=== PATIENT | female | born 1955 | race Caucasian/White ===

== ENCOUNTER 2018-03-26 14:02 | Outpatient (CLI) | payer BC ==
[2018-03-26 14:51] LABS: BASOPHILS % (AUTO) 0.6 % (0-1); EOSINOPHILS # (AUTO) 0.2 X10'3 (0-0.9); HEMATOCRIT 36.3 % (35.0-45.0); HEMOGLOBIN 12.5 g/dl (12.0-16.0); LYMPHOCYTES # (AUTO) 2.9 X10'3 (1.1-4.8); LYMPHOCYTES % (AUTO) 39.9 % (21-51); MEAN CORPUSCULAR HEMOGLOBIN 31.5 PG (27.0-31.0); MEAN CORPUSCULAR HGB CONC 34.4 % (33.0-36.5); MEAN CORPUSCULAR VOLUME 91.6 FL (78-98); MEAN PLATELET VOLUME 8.7 FL (7.4-10.4); MONOCYTES # (AUTO) 0.5 X10'3 (0-0.9); MONOCYTES % (AUTO) 6.4 % (2-12); NEUTROPHILS # (AUTO) 3.6 X10'3 (1.8-7.7); NEUTROPHILS % (AUTO) 50.1 % (42-75); PLATELET COUNT 303 X10'3 (140-440); RED BLOOD COUNT 3.97 X10'6 (4.20-5.60); RED CELL DISTRIBUTION WIDTH 13.2 % (11.5-14.5); WHITE BLOOD COUNT 7.2 X10'3 (4.5-11.0)
[2018-03-26 14:53] LABS: CLARITY,URINE SLIGHTLY CLOUDY (Clear); COLOR,URINE STRAW (Yellow); GLUCOSE, URINE NEGATIVE (Neg); KETONES,URINE NEGATIVE (Neg); LEUKOCYTE ESTERASE ,URINE TRACE (Neg); NITRITES, URINE NEGATIVE (Neg); OCCULT BLOOD,URINE NEGATIVE (Neg); PROTEIN,URINE NEGATIVE (Neg); UROBILINOGEN,URINE 0.2 E.U/dL (0.2-1.0)
[2018-03-26 15:00] LABS: PROTHROMBIN TIME 9.9 SECONDS (9.0-12.0)
[2018-03-26 15:08] LABS: ALANINE AMINOTRANSFERASE 15 U/L (12-78); ALBUMIN 3.3 G/DL (3.4-5.0); ALBUMIN/GLOBULIN RATIO 0.9 (1.1-1.5); ALKALINE PHOSPHATASE 85 IU/L (46-116); ANION GAP 7 (8-16); ASPARTATE AMINO TRANSFERASE 19 U/L (10-37); BILIRUBIN,TOTAL 0.2 MG/DL (0.1-1.0); BLOOD UREA NITROGEN 17 MG/DL (7-18); BUN/CREATININE RATIO 22.1 (6.6-38.0); CALCIUM 8.9 MG/DL (8.5-10.1); CHLORIDE 105 MMOL/L (99-107); CREATININE 0.77 MG/DL (0.40-0.90); GLUCOSE 102 MG/DL (70-104); POTASSIUM 3.2 MMOL/L (3.5-5.1); SODIUM 140 MMOL/L (135-145); TOTAL CARBON DIOXIDE 28.3 MMOL/L (24-32); eGFR 75 ML/MIN
[2018-03-26 15:09] LABS: UA COLLECTION TYPE CLN CATCH MIDSTREAM
[2018-03-26 15:10] LABS: BACTERIA,URINE 2+ /HPF (Neg); RBC,URINE NONE SEEN /HPF (0-2); WBC,URINE 0-4 /HPF (0-4)
[2018-03-26 15:11] LABS: SQUAMOUS EPITHELIAL CELL,UR FEW /LPF (FEW)
[2018-03-28] MEDS ORDERED: PROG200C7 PO (16:19)
[2018-03-28] MEDS ORDERED: ESTR2TAB PO (16:19)
[2018-03-28] MEDS ORDERED: AMLO2.5T2 PO (16:19)
[2018-03-28] MEDS ORDERED: VARE0.5T PO (16:19)
[2018-03-28] MEDS ORDERED: ALPR-624 PO (16:19)
[2018-03-28] MEDS ORDERED: ESCI5TAB PO (16:19)
[2018-03-28] MEDS ORDERED: HYDR-565 PO (16:19)
[2018-03-28] MEDS ORDERED: FAMO20TA8 PO (16:19)
[2018-03-28] MEDS ORDERED: LANS30CA56 PO (16:19)
== END 2018-03-26 23:59 | disposition home or self-care (01) ==
LOC: LAB 14:02
PROVIDERS: ATTEND Specialist
DX: Z01.818 Encounter for other preprocedural examination (principal); Z51.81 Encounter for therapeutic drug level monitoring; N39.0 Urinary tract infection, site not specified; Z87.891 Personal history of nicotine dependence; Z79.899 Other long term (current) drug therapy
CPT/HCPCS: 36415; 80053; 81001; 85025; 85610; 87070

== ENCOUNTER 2018-04-01 05:22 | Inpatient (IN) | payer BC ==
[~2018-04-01] VITALS: Ht 142.2 cm; Wt 47.2 kg
[2018-04-01] VITALS (20 sets, daily range): BP systolic 91–128; BP diastolic 43–79
[~2018-04-01 05:22] MED LIST: ALPR-624 PO; AMLO2.5T2 PO; ESCI5TAB PO; ESTR2TAB PO; FAMO20TA8 PO; HYDR-565 PO; LANS30CA56 PO; PROG200C7 PO; VARE0.5T PO; ringers solution, lacted 1,000 ML IV SCH
[2018-04-01] MEDS ORDERED: acetaminophen 325mg tablet PO ONE (05:30)
[2018-04-01] MEDS ORDERED: famotidine 20mg tablet PO ONE (05:30)
[2018-04-01] MEDS ORDERED: oxyCODONE SR 10mg (sust. release) tab PO ONE (05:30)
[2018-04-01] MEDS ORDERED: celeCOXIB 100mg capsule PO ONE (05:30)
[2018-04-01] MEDS ORDERED: gabapentin 300mg capsule PO ONE (05:30)
[2018-04-01] MEDS ORDERED: Cefazolin 2GM/50ML dext iso,osmotic IVPB IV ONE (05:30)
[2018-04-01] MEDS ORDERED: tranexamic acid inj. 1,000 MG in normal saline 100ml IV soln 90 ML IV ONE (05:30)
[2018-04-01] MEDS ORDERED: LIDOcaine 1% (10mg/ml) 2ml vial ONE (05:54)
[2018-04-01] MEDS ORDERED: MESSAGE TO NURSING PO ONE (06:00)
[2018-04-01] MEDS ORDERED: ROPIVAcaine 0.5% (5mg/ml) 30ml vial ONE ×2 (06:30→07:42)
[2018-04-01] MEDS ORDERED: bacitracin inj 150,000 UNIT in sodium chloride irrig. sol 3,000 ML IR ONE (07:00)
[2018-04-01] MEDS ORDERED: diphenhydrAMINE 50 mg/ml inj ONE (07:00)
[2018-04-01] MEDS ORDERED: cloNIDine hcl/PF 100mcg/ml inj ONE (07:03)
[2018-04-01] MEDS ORDERED: tetracaine 1% (10mg/ml) pres. free inj. ONE (07:03)
[2018-04-01] MEDS ORDERED: morphine /PF 1mg/ml 10ml inj. ONE (07:06)
[2018-04-01] MEDS ORDERED: fentaNYL/PF 50MCG/1 ML 2ML syringe ONE (07:06)
[2018-04-01] MEDS ORDERED: MIDAZolam 5mg/5ml vial ONE (07:07)
[2018-04-01] MEDS ORDERED: propofol inj 20 ML IV ONE (07:34)
[2018-04-01] MEDS ORDERED: LIDOcaine 1%/PF 5ML 10 MG/ML VIAL ONE (07:34)
[2018-04-01] MEDS ORDERED: NALOXONE IV PRN (08:27)
[2018-04-01] MEDS ORDERED: ringers solution, lacted 1,000 ML IV SCH (08:27)
[2018-04-01] MEDS ORDERED: NORMAL SALINE IV PRN (08:27)
[2018-04-01] MEDS ORDERED: proCHLORperazine 10 MG/2 ml inj IV PRN (08:30)
[2018-04-01] MEDS ORDERED: morphine 4 MG/ML inj SYRINge IV PRN ×2 (08:30)
[2018-04-01] MEDS ORDERED: ondansetron/PF 4mg/2ml inj IV PRN ×3 (08:30→09:40)
[2018-04-01] MEDS ORDERED: diphenhydrAMINE 50 mg/ml inj IV PRN (08:30)
[2018-04-01] MEDS ORDERED: meperidine/PF 25mg/ml syringe IV PRN ×3 (08:30)
[2018-04-01] MEDS ORDERED: ceFAZolin 1000mg inj ONE (08:53)
[2018-04-01] MEDS ORDERED: bisacodyl 10mg suppository rectal RC PRN (09:40)
[2018-04-01] MEDS ORDERED: diphenhydrAMINE 25mg capsule PO PRN ×2 (09:40)
[2018-04-01] MEDS ORDERED: acetaminophen 325mg tablet PO PRN (09:40)
[2018-04-01] MEDS ORDERED: oxyCODONE/APAP 10/325mg tablet PO PRN (09:40)
[2018-04-01] MEDS: potassium cl 20mEq in 1/2 NS 1,000 ML IV SCH ×2 (12:27→20:25)
[2018-04-01] MEDS: gabapentin 300mg capsule PO SCH ×2 (12:27→20:26)
[2018-04-01] MEDS: HYDROmorphone 1 mg/ml syringe IV PRN ×2 (16:26→23:47)
[2018-04-01] MEDS: ceFAZolin 1GM/D5W- ADD-VANTAGE 50 ML IV SCH (16:27)
[2018-04-01] MEDS: vancomycin/NS 1 GM ADD-VANTAGE 250 ML IV SCH (20:25)
[2018-04-01] MEDS: varenicline tartrate 0.5mg tablet PO SCH (20:25)
[2018-04-01] MEDS: sennosides 8.6mg tablet PO SCH (20:26)
[2018-04-01] MEDS: ascorbic acid 500mg tablet PO SCH (20:26)
[2018-04-01] MEDS: progesterone, micronized 100mg capsule PO SCH (20:27)
[2018-04-01] MEDS: ALPRAZolam 0.5mg tablet PO PRN (20:39)
[2018-04-01] MEDS: oxyCODONE/APAP 10/325mg tablet PO PRN (20:39)
[2018-04-02] MEDS: ceFAZolin 1GM/D5W- ADD-VANTAGE 50 ML IV SCH (00:34)
[2018-04-02 02:00] VITALS: BP 100/52
[2018-04-02] MEDS: ALPRAZolam 0.5mg tablet PO PRN ×3 (03:47→22:26)
[2018-04-02 05:00] VITALS: BP 114/60
[2018-04-02] MEDS: oxyCODONE/APAP 10/325mg tablet PO PRN ×4 (05:06→20:39)
[2018-04-02 05:18] LABS: BASOPHILS % (AUTO) 0.2 % (0-1); EOSINOPHILS # (AUTO) 0.1 X10'3 (0-0.9); EOSINOPHILS % (AUTO) 1.3 % (0-6); HEMATOCRIT 29.2 % (35.0-45.0); HEMOGLOBIN 9.9 g/dl (12.0-16.0); LYMPHOCYTES # (AUTO) 1.9 X10'3 (1.1-4.8); LYMPHOCYTES % (AUTO) 17.8 % (21-51); MEAN CORPUSCULAR HEMOGLOBIN 31.2 PG (27.0-31.0); MEAN CORPUSCULAR HGB CONC 33.8 % (33.0-36.5); MEAN CORPUSCULAR VOLUME 92.5 FL (78-98); MEAN PLATELET VOLUME 9.1 FL (7.4-10.4); MONOCYTES # (AUTO) 0.9 X10'3 (0-0.9); MONOCYTES % (AUTO) 8.2 % (2-12); NEUTROPHILS % (AUTO) 72.5 % (42-75); PLATELET COUNT 248 X10'3 (140-440); RED BLOOD COUNT 3.16 X10'6 (4.20-5.60); RED CELL DISTRIBUTION WIDTH 13.5 % (11.5-14.5)
[2018-04-02 05:26] LABS: INR 1.7 INR; PROTHROMBIN TIME 16.9 SECONDS (9.0-12.0)
[2018-04-02 05:31] LABS: ANION GAP 6 (8-16); CHLORIDE 109 MMOL/L (99-107); POTASSIUM 3.8 MMOL/L (3.5-5.1); SODIUM 139 MMOL/L (135-145); TOTAL CARBON DIOXIDE 23.9 MMOL/L (24-32)
[2018-04-02] MEDS: varenicline tartrate 0.5mg tablet PO SCH ×2 (07:52→20:37)
[2018-04-02] MEDS: citalopram 20mg tablet PO SCH (07:52)
[2018-04-02] MEDS: estradiol 1mg tablet PO SCH (07:52)
[2018-04-02] MEDS: gabapentin 300mg capsule PO SCH ×3 (07:53→20:37)
[2018-04-02] MEDS: multivitamins, therapeutics tablet PO SCH (07:53)
[2018-04-02] MEDS: vancomycin/NS 1 GM ADD-VANTAGE 250 ML IV SCH (07:53)
[2018-04-02] MEDS: ascorbic acid 500mg tablet PO SCH ×2 (07:53→20:39)
[2018-04-02] MEDS: pantoprazole 40mg Tablet.DR PO SCH (07:53)
[2018-04-02] MEDS: potassium cl 20mEq in 1/2 NS 1,000 ML IV SCH ×3 (07:53→19:02)
[2018-04-02] MEDS: amLODIPine 5mg tablet PO SCH (07:54)
[2018-04-02 10:00] VITALS: BP 120/58
[2018-04-02] MEDS ORDERED: warfarin 3mg tablet PO ONE (10:00)
[2018-04-02] MEDS: lactose-reduced food (Ensure Enlive) - 237ml bottle PO SCH ×2 (13:00→18:00)
[2018-04-02 14:00] VITALS: BP 118/62
[2018-04-02 18:00] VITALS: BP 167/80
[2018-04-02] MEDS: progesterone, micronized 100mg capsule PO SCH (20:37)
[2018-04-02] MEDS: celeCOXIB 100mg capsule PO SCH (20:37)
[2018-04-02] MEDS: sennosides 8.6mg tablet PO SCH (20:37)
[2018-04-02 22:00] VITALS: BP 159/73
[2018-04-03] MEDS: potassium cl 20mEq in 1/2 NS 1,000 ML IV SCH (01:38)
[2018-04-03] MEDS: oxyCODONE/APAP 10/325mg tablet PO PRN ×4 (05:04→23:27)
[2018-04-03 06:21] LABS: BASOPHILS % (AUTO) 0.4 % (0-1); EOSINOPHILS # (AUTO) 0.1 X10'3 (0-0.9); EOSINOPHILS % (AUTO) 1.5 % (0-6); HEMATOCRIT 33.3 % (35.0-45.0); HEMOGLOBIN 11.1 g/dl (12.0-16.0); LYMPHOCYTES # (AUTO) 2.4 X10'3 (1.1-4.8); LYMPHOCYTES % (AUTO) 26.8 % (21-51); MEAN CORPUSCULAR HEMOGLOBIN 30.8 PG (27.0-31.0); MEAN CORPUSCULAR HGB CONC 33.3 % (33.0-36.5); MEAN CORPUSCULAR VOLUME 92.7 FL (78-98); MEAN PLATELET VOLUME 9.6 FL (7.4-10.4); MONOCYTES # (AUTO) 0.6 X10'3 (0-0.9); MONOCYTES % (AUTO) 6.6 % (2-12); NEUTROPHILS # (AUTO) 5.8 X10'3 (1.8-7.7); NEUTROPHILS % (AUTO) 64.7 % (42-75); PLATELET COUNT 273 X10'3 (140-440); RED BLOOD COUNT 3.59 X10'6 (4.20-5.60); RED CELL DISTRIBUTION WIDTH 13.8 % (11.5-14.5); WHITE BLOOD COUNT 8.9 X10'3 (4.5-11.0)
[2018-04-03 06:48] LABS: INR 2.2 INR; PROTHROMBIN TIME 22.6 SECONDS (9.0-12.0)
[2018-04-03] MEDS: lactose-reduced food (Ensure Enlive) - 237ml bottle PO SCH ×3 (08:00→18:00)
[2018-04-03] MEDS: celeCOXIB 100mg capsule PO SCH ×2 (09:19→20:07)
[2018-04-03] MEDS: estradiol 1mg tablet PO SCH (09:20)
[2018-04-03] MEDS: gabapentin 300mg capsule PO SCH ×3 (09:20→20:08)
[2018-04-03] MEDS: amLODIPine 5mg tablet PO SCH (09:20)
[2018-04-03] MEDS: varenicline tartrate 0.5mg tablet PO SCH ×2 (09:20→20:07)
[2018-04-03] MEDS: citalopram 20mg tablet PO SCH (09:20)
[2018-04-03] MEDS: ascorbic acid 500mg tablet PO SCH ×2 (09:21→20:07)
[2018-04-03] MEDS: pantoprazole 40mg Tablet.DR PO SCH (09:21)
[2018-04-03] MEDS: multivitamins, therapeutics tablet PO SCH (09:21)
[2018-04-03] MEDS: ALPRAZolam 0.5mg tablet PO PRN ×2 (09:27→22:01)
[2018-04-03] MEDS ORDERED: acetaminophen 325mg tablet PO PRN (09:40)
[2018-04-03 10:00] VITALS: BP 142/75
[2018-04-03] MEDS: magnesium hydroxide 30ml (MOM) UD suspension PO PRN (10:46)
[2018-04-03 18:00] VITALS: BP 121/71
[2018-04-03] MEDS ORDERED: mineral oil 133ml enema RC PRN (18:30)
[2018-04-03] MEDS: sennosides 8.6mg tablet PO SCH (20:08)
[2018-04-03] MEDS: progesterone, micronized 100mg capsule PO SCH (20:09)
[2018-04-03 22:15] VITALS: BP 122/62
[2018-04-04 05:00] VITALS: BP 99/54
[2018-04-04] MEDS: oxyCODONE/APAP 10/325mg tablet PO PRN (05:27)
[2018-04-04 06:13] LABS: BASOPHILS % (AUTO) 0.4 % (0-1); EOSINOPHILS % (AUTO) 0 % (0-6); HEMATOCRIT 29.7 % (35.0-45.0); LYMPHOCYTES # (AUTO) 2.3 X10'3 (1.1-4.8); LYMPHOCYTES % (AUTO) 25.6 % (21-51); MEAN CORPUSCULAR HEMOGLOBIN 31.2 PG (27.0-31.0); MEAN CORPUSCULAR HGB CONC 33.7 % (33.0-36.5); MEAN CORPUSCULAR VOLUME 92.6 FL (78-98); MEAN PLATELET VOLUME 9.4 FL (7.4-10.4); MONOCYTES # (AUTO) 0.7 X10'3 (0-0.9); MONOCYTES % (AUTO) 7.8 % (2-12); NEUTROPHILS # (AUTO) 5.8 X10'3 (1.8-7.7); NEUTROPHILS % (AUTO) 66.2 % (42-75); PLATELET COUNT 272 X10'3 (140-440); RED BLOOD COUNT 3.21 X10'6 (4.20-5.60); RED CELL DISTRIBUTION WIDTH 13.5 % (11.5-14.5); WHITE BLOOD COUNT 8.8 X10'3 (4.5-11.0)
[2018-04-04 06:17] LABS: INR 1.4 INR; PROTHROMBIN TIME 14.7 SECONDS (9.0-12.0)
[2018-04-04] MEDS ORDERED: WALKERFR (06:44)
[2018-04-04] MEDS ORDERED: ASPI-41 PO (06:51)
[2018-04-04] MEDS ORDERED: HYDR-565 PO (07:47)
[2018-04-04] MEDS ORDERED: HYDROcodone/acetaminophen 10/325mg tab PO PRN ×2 (07:50)
[2018-04-04] MEDS: amLODIPine 5mg tablet PO SCH (08:00)
[2018-04-04] MEDS: celeCOXIB 100mg capsule PO SCH (08:30)
[2018-04-04] MEDS: citalopram 20mg tablet PO SCH (08:31)
[2018-04-04] MEDS: lactose-reduced food (Ensure Enlive) - 237ml bottle PO SCH (08:31)
[2018-04-04] MEDS: varenicline tartrate 0.5mg tablet PO SCH (08:31)
[2018-04-04] MEDS: estradiol 1mg tablet PO SCH (08:31)
[2018-04-04] MEDS: gabapentin 300mg capsule PO SCH (08:31)
[2018-04-04] MEDS: pantoprazole 40mg Tablet.DR PO SCH (08:32)
[2018-04-04] MEDS: ascorbic acid 500mg tablet PO SCH (08:32)
[2018-04-04] MEDS: multivitamins, therapeutics tablet PO SCH (08:32)
[2018-04-04] MEDS: magnesium hydroxide 30ml (MOM) UD suspension PO PRN (08:38)
[2018-04-04 10:00] VITALS: BP 101/52
[2018-04-04] MEDS ORDERED: warfarin 5mg tablet PO ONE (10:00)
== END 2018-04-04 13:10 | disposition home health service (06) | DRG 470 ==
LOC: PAS IN 05:22 → EDSTATUS 07:30 → ORTHO 4S 11:05
PROVIDERS: ADMIT Specialist; ATTEND Specialist
PROC: 0QPG04Z Removal of Internal Fixation Device from Right Tibia, Open Approach (ICD-10-PCS; 2018-04-01)
PROC: 0SRC0J9 Replacement of Right Knee Joint with Synthetic Substitute, Cemented, Open Approach (ICD-10-PCS; principal; 2018-04-01 07:00)
DX: M17.11 Unilateral primary osteoarthritis, right knee (principal); D62 Acute posthemorrhagic anemia; I10 Essential (primary) hypertension; K58.9 Irritable bowel syndrome, unspecified; F32.9 Major depressive disorder, single episode, unspecified; F41.9 Anxiety disorder, unspecified; K21.9 Gastro-esophageal reflux disease without esophagitis; M22.41 Chondromalacia patellae, right knee; Z79.899 Other long term (current) drug therapy
CPT/HCPCS: 36415; 73560; 80051; 85025; 85610; 97110; 97116; 97162; 97530; A6449; A6455; A7000; C1713; C1758; C1776; J0690; J0735; J1170; J1200; J2001; J2250; J2274; J2405; J2704; J2795; J3010; J3370; J3490; J7030; J7120; Q0163

== ENCOUNTER 2021-09-22 19:08 | Emergency (ER) | payer BC, MEDICARE ==
[~2021-09-22] VITALS: Ht 142.2 cm; Wt 45.5 kg
[~2021-09-22 19:08] MED LIST changes: -ESTR2TAB PO; +ESTR2TAB50 PO; +HYDR-4353 PO; -HYDR-565 PO; +PROG200C11 PO; -PROG200C7 PO; +WALKERFR; -ringers solution, lacted 1,000 ML IV SCH
[2021-09-22 19:57] LABS: BASOPHILS % (AUTO) 0.2 % (0-1); EOSINOPHILS % (AUTO) 0.3 % (0-6); HEMATOCRIT 39.2 % (35.0-45.0); HEMOGLOBIN 13.5 g/dl (12.0-16.0); LYMPHOCYTES # (AUTO) 0.7 X10'3 (1.1-4.8); LYMPHOCYTES % (AUTO) 7.5 % (21-51); MEAN CORPUSCULAR HEMOGLOBIN 31.7 PG (27.0-31.0); MEAN CORPUSCULAR HGB CONC 34.4 g/dL (33.0-36.5); MEAN PLATELET VOLUME 8.2 FL (7.4-10.4); MONOCYTES # (AUTO) 0.2 X10'3 (0-0.9); MONOCYTES % (AUTO) 2.4 % (2-12); NEUTROPHILS # (AUTO) 8.4 X10'3 (1.8-7.7); NEUTROPHILS % (AUTO) 89.6 % (42-75); PLATELET COUNT 477 X10'3 (140-440); RED BLOOD COUNT 4.26 X10'6 (4.20-5.60); RED CELL DISTRIBUTION WIDTH 13.8 % (11.5-14.5); WHITE BLOOD COUNT 9.4 X10'3 (4.5-11.0)
[2021-09-22 20:22] LABS: ALANINE AMINOTRANSFERASE 32 U/L (12-78); ALBUMIN 2.5 G/DL (3.4-5.0); ALBUMIN/GLOBULIN RATIO 0.5 (1.1-1.5); ALKALINE PHOSPHATASE 177 IU/L (46-116); ANION GAP 14 (8-16); ASPARTATE AMINO TRANSFERASE 38 U/L (10-37); BILIRUBIN,TOTAL 0.4 MG/DL (0.1-1.0); BLOOD UREA NITROGEN 10 MG/DL (7-18); BUN/CREATININE RATIO 14.9 (6.6-38.0); CALCIUM 8.7 MG/DL (8.5-10.1); CHLORIDE 103 MMOL/L (99-107); CREATININE 0.67 MG/DL (0.40-0.90); GLUCOSE 89 MG/DL (70-104); POTASSIUM 3.8 MMOL/L (3.5-5.1); SODIUM 140 MMOL/L (135-145); TOTAL CARBON DIOXIDE 23.4 MMOL/L (24-32); TOTAL PROTEIN 7.5 G/DL (6.4-8.2); eGFR 88 ML/MIN
[2021-09-22 21:01] VITALS: BP 125/75
[2021-09-22] MEDS ORDERED: CefTRIAXone 1000mg IM Kit (w/lidocaine diluent) IM ONE (21:15)
[2021-09-22] MEDS ORDERED: CEFD300C3 PO (21:18)
[2021-09-22 21:24] LABS: CLARITY,URINE SLIGHTLY CLOUDY (Clear); COLOR,URINE YELLOW (Yellow); GLUCOSE, URINE NEGATIVE (Neg); KETONES,URINE TRACE mg/dl (Neg); LEUKOCYTE ESTERASE ,URINE NEGATIVE (Neg); NITRITES, URINE NEGATIVE (Neg); OCCULT BLOOD,URINE NEGATIVE (Neg); PROTEIN,URINE 30 mg/dl (Neg); UROBILINOGEN,URINE 0.2 E.U/dL (0.2-1.0)
[2021-09-22 21:27] LABS: UA COLLECTION TYPE CLN CATCH MIDSTREAM
[2021-09-22 21:38] LABS: MUCUS STRANDS MANY /LPF (Neg)
[2021-09-22 21:39] LABS: BACTERIA,URINE 2+ /HPF (Neg); RBC,URINE 0-2 /HPF (0-2); SQUAMOUS EPITHELIAL CELL,UR MANY /LPF (FEW); WBC,URINE 0-4 /HPF (0-4)
== END 2021-09-22 21:43 | disposition home or self-care (01) ==
LOC: ER 19:09
DX: U07.1 COVID-19 (principal); J18.9 Pneumonia, unspecified organism; R11.2 Nausea with vomiting, unspecified; R05.9 Cough, unspecified; J34.89 Other specified disorders of nose and nasal sinuses; R07.89 Other chest pain; R50.9 Fever, unspecified; J02.9 Acute pharyngitis, unspecified; R10.84 Generalized abdominal pain; I10 Essential (primary) hypertension; K21.9 Gastro-esophageal reflux disease without esophagitis; M19.90 Unspecified osteoarthritis, unspecified site; G89.29 Other chronic pain; F41.9 Anxiety disorder, unspecified; Z79.899 Other long term (current) drug therapy
CPT/HCPCS: 36415; 71045; 80053; 81001; 83880; 85025; 99284

== ENCOUNTER 2023-08-08 20:39 | Emergency (ER) | payer MEDICARE, OTHER ==
[~2023-08-08] VITALS: Ht 142.2 cm; Wt 50.4 kg
[2023-08-08 20:54] VITALS: BP 150/80; PULSE 93; RESP 18; TEMP 98.6; O2SAT 98
== END 2023-08-09 03:04 | disposition left against medical advice (07) ==
LOC: ER 20:40
DX: S09.90XA Unspecified injury of head, initial encounter (principal); Z53.21 Procedure and treatment not carried out due to patient leaving prior to being seen by health care provider; X58.XXXA Exposure to other specified factors, initial encounter; Y93.89 Activity, other specified; Y92.89 Other specified places as the place of occurrence of the external cause; Y99.8 Other external cause status
CPT/HCPCS: 99281